=== PATIENT | male | born 1995 | race Caucasian/White ===

== ENCOUNTER 2019-10-26 19:48 | Emergency (ER) | payer SELFPAY ==
[~2019-10-26] VITALS: Ht 165.1 cm; Wt 59.1 kg
--- NOTE | 2019-10-26 20:24 | ED EENT ---
History of Present Illness General Chief Complaint: Dental Problems/Pain Stated Complaint: DENTAL PAIN Nursing Triage Note: pt reports lower left side tooth pain, 2nd from back, ongoing 2 weeks, has not seen a dentist, has not taken anything for pain Source: patient History of Present Illness Date Seen by Provider: Oct 26, 2019 Time Seen by Provider: 20:24 Initial Comments 24 yo M presenting with pain to left lower back tooth for over 2 weeks but worse in last 2 days. He denies having any fever or chills. He has had no drainage from around the tooth. He has tried orajel, ibuprofen and acetaminophen and OTC numbing medicine without significant improvement. He does not have a dentist that he sees. He has not seen anyone about the tooth until tonight. Allergies and Home Medications Allergies Coded Allergies: No Known Drug Allergies (Unverified , 10/26/19) Home Medications Amoxicillin/Potassium Clav 1 Each Tablet, 1 EACH PO BID Prescribed by: CASSI BRUNNER on 10/26/192042 Ibuprofen 800 Mg Tablet, 800 MG PO Q8H PRN for PAIN Prescribed by: CASSI BRUNNER on 10/26/192042 Tramadol HCl 50 Mg Tablet, 50 MG PO Q6H PRN for PAIN Prescribed by: CASSI BRUNNER on 10/26/192042 Patient Home Medication List Home Medication List Reviewed: Yes Review of Systems Review of Systems Constitutional: No chills, No fever Eyes: No Symptoms Reported Ears: No Symptoms Reported Nose: no symptoms reported Mouth: see HPI Throat: no symptoms reported Respiratory: no symptoms reported Cardiovascular: no symptoms reported Gastrointestinal: no symptoms reported Musculoskeletal: no symptoms reported Skin: no symptoms reported Neurological: No Symptoms Reported Past Qdzfird-Ircrae-Davmhv Hx Past Med/Social Hx: Reviewed Nursing Past Med/Soc Hx Patient Social History Alcohol Use: Denies Use Recreational Drug Use: No Smoking Status: Current Everyday Smoker Type Used: Cigarettes 2nd Hand Smoke Exposure: No Recent Foreign Travel: No Contact w/Someone Who Travel: No Recent Infectious Disease Expo: No Recent Hopitalizations: No Physical Abuse: No Sexual Abuse: No Mistreated: No Fear: No Seasonal Allergies Seasonal Allergies: No Past Medical History Surgeries: No Respiratory: No Cardiac: No Neurological: No Genitourinary: No Gastrointestinal: No Musculoskeletal: No Endocrine: No HEENT: No Cancer: No Psychosocial: Yes ADD/ADHD (not taking any medicine for it as of Oct 2019) Integumentary: No Blood Disorders: No Physical Exam Vital Signs Vital Signs - First Documented 10/26/19 19:59 Temp 36.6 Pulse 78 Resp 15 B/P (MAP) 137/86 (103) Pulse Ox 98 O2 Delivery Room Air Height, Weight, BMI Height: '" Weight: lbs. oz. kg; 21.00 BMI Method: General Appearance: WD/WN, mild distress, other (pt appears anxious and fidgeting in the room) Eyes: bilateral eye PERRL, bilateral eye EOMI Mouth/Throat: pharynx normal, dental tenderness (left posterior tooth mandible just in front of wisdom tooth. wisdom tooth is angled and pushing against the painful tooth), other (some cavities seen in mouth but not on the tooth that is reportedly causing pain.) Neck: non-tender, full range of motion, supple, normal inspection Cardiovascular: normal peripheral pulses, regular rate, rhythm Respiratory: chest non-tender, lungs clear, normal breath sounds Neurologic/Psychiatric: alert, oriented x 3, other (anxious) Skin: normal color, warm/dry Progress/Results/Core Measures Results/Orders My Orders Orders - CASSI BRUNNER MD Lidocaine 1% Inj 20 Ml (Xylocaine 1% Inj (10/26/19 20:32) Amoxicillin/Clavulanate Tablet (Augmenti (10/26/19 20:32) Rx-Tramadol Hcl (Rx-Ultram) (10/26/19 20:32) Vital Signs/I&O 10/26/19 10/26/19 19:59 20:55 Temp 36.6 36.6 Pulse 78 78 Resp 15 15 B/P (MAP) 137/86 (103) 137/86 (103) Pulse Ox 98 98 O2 Delivery Room Air Blood Pressure Mean: 103 Progress Progress Note #1: Progress Note will treat with dental block to angle of mandible on left side and start on antibiotic and then discharge on tramadol and augmentin. Encourage him to follow up with [facility] to see dental clinic. Progress Note #2: Progress Note after obtaining a verbal consent from patient he was given 3 mL of 1 % plain lidocaine as an injection to angle of mandible and around the base of the tooth at posterior left mandible for a dental block. He tolerated this well without any immediate complication. He had good relief of pain. Counseled on follow up and return precautions Departure Impression Primary Impression: Pain due to dental caries Additional Impression: Impacted teeth with abnormal position Disposition: 01 HOME, SELF-CARE Condition: Stable Departure-Patient Inst. Decision time for Depature: 20:43 Referrals: NO,LOCAL PHYSICIAN (PCP) Primary Care Physician [facility] Patient Instructions: Tooth Decay, Adult (DC), Impacted Tooth (DC), Dental Pain (DC) Add. Discharge Instructions: Take antibiotic to treat for possible dental infection. Use the pain medicine to help control the pain until you can get in with dentist. Check with [facility] clinic about getting in with dentist or see dentist of your choice for follow up as soon as possible All discharge instructions reviewed with patient and/or family. Voiced understanding. Scripts Tramadol HCl (Tramadol HCl) 50 Mg Tablet 50 MG PO Q6H PRN for PAIN for 3 Days, #12 TAB 0 Refills Prov: CASSI BRUNNER MD 10/26/19 Ibuprofen (Ibuprofen) 800 Mg Tablet 800 MG PO Q8H PRN for PAIN for 10 Days, #30 TAB 0 Refills Prov: CASSI BRUNNER MD 10/26/19 Amoxicillin/Potassium Clav (Augmentin 875-125 Tablet) 1 Each Tablet 1 EACH PO BID for 7 Days, #14 TAB 0 Refills Prov: CASSI BRUNNER MD 10/26/19 Images Mouth/Nose 1 - Tenderness (wisdom tooth was impacted against tooth in front of it causing pain) CASSI BRUNNER MD Oct 26, 2019 20:24
[2019-10-26] MEDS ORDERED: LIDOCAINE 1% INJ 20 ML 20 ML VIAL INJ STA (20:32)
[2019-10-26] MEDS ORDERED: AUGMENTIN 875 MG TAB (AMOXICILLIN/CLAVULANATE) PO STA (20:32)
[2019-10-26] MEDS ORDERED: RX-TRAMADOL 50 MG (ULTRAM) TAB PPK#4 PO STA (20:32)
[2019-10-26] MEDS ORDERED: AMOX-358 PO (20:43)
[2019-10-26] MEDS ORDERED: TRM50T PO (20:43)
[2019-10-26] MEDS ORDERED: IBUP-1780 PO (20:43)
[2019-10-26 20:55] VITALS: BP 137/86
== END 2019-10-26 20:55 | disposition home or self-care (01) ==
LOC: ER FS 19:53
DX: K02.9 Dental caries, unspecified (principal); M26.30 Unspecified anomaly of tooth position of fully erupted tooth or teeth; F90.9 Attention-deficit hyperactivity disorder, unspecified type; F17.210 Nicotine dependence, cigarettes, uncomplicated
CPT/HCPCS: 99284

== ENCOUNTER 2020-09-24 14:41 | Emergency (ER) | payer SELFPAY ==
[~2020-09-24] VITALS: Ht 180 cm; Wt 67.0 kg
[~2020-09-24 14:41] MED LIST: AMOX-358 PO; IBUP-1780 PO; TRM50T PO
[2020-09-24 14:48] VITALS: BP 136/74
--- NOTE | 2020-09-24 15:18 | ED General ---
General Chief Complaint: Dental Problems/Pain Stated Complaint: DENTAL PAIN Nursing Triage Note: RIGHT LOWER SIDE OF MOUTH HAS A TOOTH THAT IS BROKEN OFF PARTIALLY WITH GUM SWELLING. Nursing Sepsis Screen: No Definite Risk History of Present Illness Date Seen by Provider: Sep 24, 2020 Time Seen by Provider: 15:00 Initial Comments Patient is a 25-year-old male who presents with right lower mandible pain starting 3 days ago. States had similar pain on and off for months but did not see a dentist. Reports sharp dull pain that is nonradiating worse with food and fluid intake. No drooling dysphonia, dysphagia or trismus. No other acute symptoms or complaints. Patient does have plans to follow up with dentist in [facility] in the next several days. Timing/Duration: 2-3 Days Severity: Moderate Modifying Factors: improves with Eating Associated Systoms: Denies Symptoms Allergies and Home Medications Allergies Coded Allergies: No Known Drug Allergies (Unverified , 10/26/19) Home Medications Amoxicillin/Potassium Clav 1 Each Tablet, 1 EACH PO BID Prescribed by: CASSI BRUNNER on 10/26/192042 Ibuprofen 800 Mg Tablet, 800 MG PO Q8H PRN for PAIN Prescribed by: CASSI BRUNNER on 10/26/192042 Tramadol HCl 50 Mg Tablet, 50 MG PO Q6H PRN for PAIN Prescribed by: CASSI BRUNNER on 10/26/192042 Patient Home Medication List Home Medication List Reviewed: Yes Review of Systems Review of Systems Constitutional: see HPI EENTM: dental problems, mouth pain Respiratory: no symptoms reported, see HPI Cardiovascular: see HPI Gastrointestinal: no symptoms reported Past Koktcvg-Bjcprt-Ctpkff Hx Patient Social History Alcohol Use: Denies Use Recreational Drug Use: No Smoking Status: Current Everyday Smoker Type Used: Cigarettes 2nd Hand Smoke Exposure: No Recent Foreign Travel: No Contact w/Someone Who Travel: No Recent Infectious Disease Expo: No Recent Hopitalizations: No Physical Abuse: No Sexual Abuse: No Mistreated: No Fear: No Seasonal Allergies Seasonal Allergies: No Past Medical History Surgeries: No Respiratory: No Cardiac: No Neurological: No Genitourinary: No Gastrointestinal: No Musculoskeletal: No Endocrine: No HEENT: No Cancer: No Psychosocial: Yes ADD/ADHD Integumentary: No Blood Disorders: No Physical Exam Vital Signs Vital Signs - First Documented 09/24/20 14:48 Temp 36.8 Pulse 76 Resp 18 B/P (MAP) 136/74 (94) Pulse Ox 99 O2 Delivery Room Air Capillary Refill : Less Than 3 Seconds Height, Weight, BMI Height: '" Weight: lbs. oz. kg; 20.00 BMI Method: General Appearance: No Apparent Distress Eyes: Bilateral Eye Normal Inspection HEENT: PERRL/EOMI, Normal ENT Inspection, Pharynx Normal, Other (right anterior mandibular lateral incisor tenderness with minimal gingival swelling, no appreciated soft tissue abscess, facial cellulitis or some mandibular swelling.) Respiratory: Lungs Clear Focused Exam Sepsis Stage: Ruled Out Progress/Results/Core Measures Suspected Sepsis Recent Fever Within 48 Hours: No Infection Criteria Present: None New/Unexplained Altered Menta: No Sepsis Screen: No Definite Risk SIRS Temperature: Pulse: 76 Respiratory Rate: 18 Blood Pressure 136 /74 Mean: 94 Results/Orders Vital Signs/I&O 09/24/20 14:48 Temp 36.8 Pulse 76 Resp 18 B/P (MAP) 136/74 (94) Pulse Ox 99 O2 Delivery Room Air Capillary Refill : Less Than 3 Seconds Blood Pressure Mean: 94 Departure Communication (Admissions) Dental caries without obvious soft tissue abscess. Impression Primary Impression: Dental caries Disposition: HOME, SELF-CARE Condition: Stable Departure-Patient Inst. Decision time for Depature: 15:20 Referrals: NO,LOCAL PHYSICIAN (PCP/Family) Primary Care Physician Patient Instructions: Tooth Decay, Adult (DC) Add. Discharge Instructions: Please take medications as directed and follow-up with dentist of choice as soon as possible All discharge instructions reviewed with patient and/or family. Voiced understanding. Scripts Amoxicillin (Amoxicillin) 500 Mg Tablet 500 MG PO Q12H, #14 TAB Prov: TOSHA GARCIA DO 09/24/20 Hydrocodone/Acetaminophen (Hydrocodone-Acetamin 5-325 mg) 1 Each Tablet 1 EACH PO Q6H, #10 TAB Prov: TOSHA GARCIA DO 09/24/20 TOSHA GARCIA DO Sep 24, 2020 15:18
[2020-09-24] MEDS ORDERED: ACHD5005 PO (15:21)
[2020-09-24] MEDS ORDERED: AMOX500T2 PO (15:21)
== END 2020-09-24 15:25 | disposition home or self-care (01) ==
LOC: EDUNIT# 14:41 → ER FS 14:43
DX: K02.9 Dental caries, unspecified (principal); F17.210 Nicotine dependence, cigarettes, uncomplicated
CPT/HCPCS: 99282